=== PATIENT | female | born 1965 | race Caucasian/White ===

== ENCOUNTER 2017-03-25 04:20 | Day surgery (SDC) | payer MEDICARE, OTHER ==
--- NOTE | ~2017-03-25 | OP ---
Record Of Operation [facility] [address] [place]. [address] NAME: BRENNON WATERS : 63 STATUS : REG [facility]#: [id number] AGE: 51 ADM/REG DATE : 03/25/17 MR#: [id number] REPORT SERV DATE: 03/25/17 DICTATED BY: BRIT SILVER III DATE: 03/25/17 REPORT STATUS : Draft TRANSCRIBED BY: MODJavier DATE: 03/25/17 DATE OF PROCEDURE: 03/25/2017 PREOPERATIVE DIAGNOSIS: Symptomatic ventral hernia. POSTOPERATIVE DIAGNOSIS: Symptomatic ventral hernia, incarcerated ventral hernia. PROCEDURE: Open repair of incarcerated ventral hernia with Prolene mesh. ANESTHESIA: General with intubation. COMPLICATIONS: None. ESTIMATED BLOOD LOSS: Less than 5 mL. SPECIMENS: None. DRAINS: None. LAP AND SPONGE COUNT: Correct x3. BRIEF HISTORY: This 51-year-old female presented with a symptomatic supraumbilical ventral or incisional hernia. This is located about 3 cm to 5 cm above the navel, the beneath the trocar site. It was felt that repair of this hernia was indicated. This procedure, the risks, benefits, and alternatives, including but not limited to the risk for bleeding, infection, enterotomy, injury to any abdominal structure, postop small bowel obstruction, ileus, seroma formation, hematoma formation, recurrence of the hernia, infection of the mesh or enterocutaneous fistula requiring removal of the mesh, and unforeseen complications including deep venous thrombosis, pulmonary embolus, myocardial infarction, stroke, pneumonia, and , were fully and completely explained to the patient prior to the surgery. The expected length of recovery was explained. The patient's questions were answered. She understood the risks and agreed to the surgery as planned. DESCRIPTION OF PROCEDURE: After being properly identified, and after discussing the risks and benefits of the surgery with the patient again in the preoperative area, and after identifying her hernia with her in the preoperative area, and after bronchodilator treatment because of her severe dyspnea at rest, the patient was taken to the operating room, placed in supine position on the operating room table. General anesthesia was administered, and she was intubated without difficulty. The abdomen was prepped and draped sterilely in the usual fashion. After an appropriate "time-out" per JCAHO standards, a small vertical incision was made in the midline, over the previous incision, over the hernia which was some 4 cm or so superior to the navel. The incision was continued through the subcutaneous tissue. Hemostasis was controlled with the cautery. The incision was continued down to the fascial defect. The defect was about 2 cm to 3 cm in size. There was a hernia sac which was excised. There was omentum chronically incarcerated within the hernia. Using careful sharp dissection, the omentum was carefully dissected from the surrounding tissues. It was Record Of Operation [facility] [address] [facility] [place]. [address] NAME: BRENNON WATERS : 63 STATUS : REG [facility] [place] PAT#: [id number] AGE: 51 ADM/REG DATE : 03/25/17 MR#: [id number] REPORT SERV DATE: 03/25/17 DICTATED BY: BRIT SILVER III DATE: 03/25/17 REPORT STATUS : Draft TRANSCRIBED BY: MODL DATE: 03/25/17 carefully reduced back in the abdominal cavity. The underside of the fascia posteriorly was palpated to be certain there was no bowel beneath this. The skin and subcutaneous tissue around the defect anteriorly was fully mobilized. Hemostasis was assured. The fascial edges were thus defined anteriorly and posteriorly. A Prolene mesh patch was selected and placed beneath the fascia in an underlay fashion. This was secured around the edges of the fascia with interrupted #1 Prolene sutures. The mesh was placed so as to overlap the edges of the fascia by 2 cm or so. The fascia was then closed anterior to the mesh with interrupted #1 Prolene sutures. The fascia came together nicely with no tension. Hemostasis was assured. The subcutaneous tissue was closed with a running 3-0 chromic suture. The skin was closed with a running subcuticular 4-0 Monocryl stitch. The incision was injected with 0.5% Marcaine. Dressings were applied. Anesthesia was reversed. The patient was taken to the recovery room in stable condition. It should be noted that the patient has chronic lung disease and had moderate coughing during the extubation process. Pressure was held on the hernia repair site to prevent injury to the repair, but the patient did have [id number] coughing. The patient's family was informed the results of the surgery. We have asked Nephrology to see the patient if she is due for dialysis today, and we will request the dialysis to be done in the hospital prior to her discharge. The patient will be discharged when stable and comfortable and able to tolerate liquids and able to void and ambulate. Her family was advised that she should keep the wound clean and dry for 48 hours, that she should not drive for three to four days after surgery or while using narcotics, and that she should resume her usual medications, and that she should not perform any heavy lifting for five to six weeks. She has been asked to return in two weeks for followup or sooner if any nausea, vomiting, fever, chills, wound drainage, abdominal pain, weakness, or other problems prior to that time. She was given a prescription for Percocet 7.5 one t.i.d., #12, as needed for pain, which she was advised not to use while driving. RHJ/MODL Brit Silver III, M.D. / [id number] CC: Katalina Meraz III
--- NOTE | ~2017-03-25 | PREOPHP ---
PreOp History and Physical [address] [place]. [address] NAME: BRENNON BURLESON : 63 STATUS : REG [facility] PAT#: [id number] AGE: 51 ADM/REG DATE : 03/25/17 MR#: [id number] REPORT SERV DATE: 03/25/17 DICTATED BY: BRIT SILVER III DATE: 03/06/17 REPORT STATUS : Draft TRANSCRIBED BY: MODJavier DATE: 03/06/17 HISTORY OF PRESENT ILLNESS: This 51-year-old female comes to the operating room for open repair of a symptomatic umbilical hernia. The patient complains of a mid abdominal knot which has been present for about one year. Recently became painful. She has had no nausea or vomiting, but has had symptoms related to this umbilical hernia. The patient comes now for an open repair of this umbilical hernia. PAST MEDICAL HISTORY: 1. Hypertension. 2. Coronary artery disease. 3. Diabetes mellitus. 4. Fibromyalgia. 5. Diabetic neuropathy. 6. Stage 4 kidney disease. 7. COPD. 8. History of myocardial infarction. PAST SURGICAL HISTORY: Includes coronary artery stent placement, coronary artery bypass graft, and hip surgery. FAMILY HISTORY: Positive for diabetes and heart disease. MEDICATIONS: Renvela, gabapentin, mirtazapine, losartan, Lasix, venlafaxine, atorvastatin, isosorbide, amlodipine, hydralazine, carvedilol, Nitrostat, and aspirin. ALLERGIES: NONE. REVIEW OF SYSTEMS: The patient complains of fatigue and weight gain, fever, swelling in her hands and feet, back pain, or easy bruising. PHYSICAL EXAMINATION: GENERAL: This is an obese female, in no acute distress. She is alert and oriented x3. HEENT: Unremarkable. Cranial nerves 2 through 12 normal. LUNGS: Clear. CARDIAC: Normal. ABDOMEN: Soft and nontender. The patient's abdomen is very obese and difficult to examine. I feel the patient is morbidly obese. I am not able to definitely palpate the umbilical hernia, but this is seen on CT scan. Blood pressure 156/62, heart rate 58, and temperature 97.5. EXTREMITIES: Unremarkable. LABORATORY DATA: CT scan of the abdomen and pelvis shows a fat containing umbilical hernia with some ascites within the hernia. ASSESSMENT: PreOp History and Physical [address] [place]. [address] NAME: BRENNON BURLESON : 63 STATUS : REG [facility] PAT#: [id number] AGE: 51 ADM/REG DATE : 03/25/17 MR#: [id number] REPORT SERV DATE: 03/25/17 DICTATED BY: BRIT SILVER III DATE: 03/06/17 REPORT STATUS : Draft TRANSCRIBED BY: MODL DATE: 03/06/17 1. A 51-year-old female with symptomatic umbilical hernia. 2. Obesity. 3. Chronic kidney disease, stage 4. 4. Chronic obstructive pulmonary disease. 5. Coronary artery disease. 6. History of myocardial infarction. 7. History of coronary artery stent placement. 8. Diabetes mellitus. 9. Fibromyalgia. PLAN: The patient comes to the operating room now for open umbilical hernia repair. This procedure, the risks, benefits, and alternatives, including not limited to the risk for bleeding, infection, enterotomy, injury to abdominal structure, postop small bowel obstruction, ileus, seroma formation, hematoma formation, recurrence of the hernia, and unforeseen complications including deep venous thrombosis, pulmonary embolus, myocardial infarction, stroke, pneumonia, and , have been fully and completely explained to the patient prior to surgery. The fact that this is a major operation with risk for major morbidity and mortality has been explained. The expected length of recovery has been explained. The patient's questions have been answered. She clearly understands the risks and agrees to surgery as planned. ADDENDUM: It should be noted that Ms Burleson's hernia is actually a supraumbilical ventral hernia. On review of the CT scan prior to the surgery, with Dr. Arambula of Radiology, it was apparent that the patient does not have an umbilical hernia on the CT scan, but rather a supraumbilical hernia. This hernia is located about 3 cm above her umbilicus. She does not have an umbilical hernia. This is beneath a trocar incision. This is therefore an incisional or ventral hernia. I explained this to the patient prior to the surgery, I explained to her where the incision would be located. Again, regarding the surgery, the procedure, risks, benefits, and alternatives, including but not limited to the risk for bleeding, infection, enterotomy, injury to any abdominal structure, postop small bowel obstruction, ileus, seroma formation, hematoma formation, recurrence of the hernia, and unforeseen complications including deep venous thrombosis, pulmonary embolus, myocardial infarction, stroke, pneumonia, and , were explained to the patient prior to the surgery. Her questions were answered. She understood the risks and agreed to the surgery as planned. AMADA/JUN Brit Silver III, M.D. / [id number] / [id number] PreOp History and Physical [address] [address] NAME: BRENNON BURLESON : 63 STATUS : REG [facility]#: [id number] AGE: 51 ADM/REG DATE : 03/25/17 MR#: [id number] REPORT SERV DATE: 03/25/17 DICTATED BY: BRIT SILVER III DATE: 03/06/17 REPORT STATUS : Draft TRANSCRIBED BY: JUN DATE: 03/06/17 CC: Brit Silver III, M.D.
[~2017-03-25 04:20] MED LIST: APRES25 PO; ASAB PO; COREG25 PO; COZ25 PO; EFFEX75 PO; L20 PO; LOM PO; NEUR100 PO; NITROSTAT0.4 MG SL; NORV5 PO; RENVELA800 MG PO
[2017-03-25 06:34] LABS: BASOPHILS ABSOLUTE 0.13 10/3/uL (0.0-0.16); EOSINOPHILS 2.1 %; EOSINOPHILS ABSOLUTE 0.26 10/3/uL (0.0-0.53); HEMATOCRIT 37.5 % (36.0-48.0); HEMOGLOBIN 11.7 g/dL (12.0-16.0); IMMATURE GRANULOCYTES 0.4 %; IMMATURE GRANULOCYTES ABSOLUTE 0.05 10/3/uL (0.0-0.11); LYMPHOCYTES 6.4 %; LYMPHOCYTES ABSOLUTE 0.81 10/3/uL (0.67-4.30); MEAN CORPUS HGB CONC 31.2 g/dL (32.0-36.0); MEAN CORPUSCULAR HEMOGLOB 27.7 pg (26.0-34.0); MEAN CORPUSCULAR VOLUME 88.7 fL (80-100); MEAN PLATELET VOLUME 9.6 fL (9.2-13.0); MONOCYTES 6.4 %; MONOCYTES ABSOLUTE 0.81 10/3/uL (0.21-1.20); NEUTROPHILS 83.7 %; NEUTROPHILS ABSOLUTE 10.54 10/3/uL (2.02-8.40); PLATELET COUNT 305 10/3/uL (150-400); RBC DISTRIBUTION WIDTH 19.2 % (12.0-16.0); RED CELL COUNT 4.23 10/6/uL (4.0-5.6); WHITE BLOOD CELLS 12.6 10/3/uL (4.5-10.5)
[2017-03-25 06:35] LABS: MANUAL DIFF NO %
[2017-03-25 06:49] LABS: A/G RATIO 0.9 (0.7-1.9); ALBUMIN 3.9 G/DL (3.5-5.0); ALKALINE PHOSPHATASE 396 U/L (45-117); BUN (BLOOD UREA NITROGEN) 52 MG/DL (6-23); CALCIUM, SERUM 9.8 MG/DL (8.5-10.4); CHLORIDE, SERUM 101 MMOL/L (96-112); CO2 (CARBON DIOXIDE) 20 MMOL/L (24-34); CREATININE 6.09 MG/DL (0.55-1.02); GFR AFRICAN AMERICAN 8 ML/MIN (>=60); GFR NON AFRICAN AMERICAN 7 ML/MIN (>=60); GLOBULIN 4.4 G/DL (2.5-4.1); GLUCOSE, SERUM 179 MG/DL (60-99); SGPT(ALT) 32 U/L (5-65); SODIUM, SERUM 132 MMOL/L (135-148); TOTAL BILIRUBIN 1.2 MG/DL (0-1.2); TOTAL PROTEIN 8.3 G/DL (6.0-8.5)
[2017-03-25 06:50] LABS: POTASSIUM, SERUM 5.6 MMOL/L (3.5-5.3); SGOT(AST) 32 U/L (5-40)
== END 2017-03-25 19:09 | disposition home or self-care (01) ==
LOC: SDC 04:20
PROVIDERS: Surgery
PROC: 0WUF0JZ Supplement Abdominal Wall with Synthetic Substitute, Open Approach (ICD-10-PCS; principal; 2017-03-25 06:45)
DX: K43.6 Other and unspecified ventral hernia with obstruction, without gangrene (principal); I25.10 Atherosclerotic heart disease of native coronary artery without angina pectoris; I25.2 Old myocardial infarction; I13.2 Hypertensive heart and chronic kidney disease with heart failure and with stage 5 chronic kidney disease, or end stage renal disease; I50.9 Heart failure, unspecified; E66.9 Obesity, unspecified; E11.22 Type 2 diabetes mellitus with diabetic chronic kidney disease; E11.40 Type 2 diabetes mellitus with diabetic neuropathy, unspecified; N18.6 End stage renal disease; J44.9 Chronic obstructive pulmonary disease, unspecified; G47.30 Sleep apnea, unspecified; M79.7 Fibromyalgia; M19.90 Unspecified osteoarthritis, unspecified site; M25.459 Effusion, unspecified hip; D63.1 Anemia in chronic kidney disease; F31.9 Bipolar disorder, unspecified; F41.9 Anxiety disorder, unspecified; Z95.5 Presence of coronary angioplasty implant and graft; Z95.1 Presence of aortocoronary bypass graft; Z98.890 Other specified postprocedural states; Z83.3 Family history of diabetes mellitus; Z82.49 Family history of ischemic heart disease and other diseases of the circulatory system; Z99.81 Dependence on supplemental oxygen; Z79.82 Long term (current) use of aspirin; Z79.83 Long term (current) use of bisphosphonates; Z79.899 Other long term (current) drug therapy; Z98.41 Cataract extraction status, right eye; Z98.42 Cataract extraction status, left eye; Z96.1 Presence of intraocular lens; Z90.49 Acquired absence of other specified parts of digestive tract; Z99.2 Dependence on renal dialysis; Z90.89 Acquired absence of other organs
CPT/HCPCS: 71020; 80053; 82962; 85025; 87641; 93005; 94640; 94660; A9270-GY; C1781; G0257; J0360; J0690; J2250; J2405; J2710; J3010